=== PATIENT | male | born 1975 | race Caucasian/White ===

== ENCOUNTER → 2018-01-12 | Outpatient (CLI) | payer OTHER | LOC: M WUC 08:46 | DX: R05 Cough (principal); R06.02 Shortness of breath | CPT/HCPCS: 71046 ==

== ENCOUNTER 2019-02-08 06:40 | Day surgery (SDC) | payer OTHER ==
[~2019-02-08] VITALS: Ht 177.8 cm; Wt 103.9 kg
[~2019-02-08 06:40] MED LIST: LEVO88TA3 PO; LOSA100T50 PO; OMEP-218 PO
[2019-02-08] MEDS ORDERED: NS 1,000 ML IV ONE (07:00)
[2019-02-08] MEDS ORDERED: LIDOCAINE 2% INJ 100 MG/5 ML SDV (FOR ANES.) As Ordered ONE (07:03)
[2019-02-08] MEDS ORDERED: PROPOFOL 200 MG/20 ML VIAL As Ordered ONE ×2 (07:03→07:46)
--- NOTE | 2019-02-08 07:49 | ROOR ---
Patient Name: Dewey Dunlap Procedure Date: 02/08/2019 7:33 AM Date of : 1975 Age: 43 Room: [facility] Gender: Male Note Status: Finalized Procedure: Colonoscopy Indications: High risk colon cancer surveillance: Personal history of colonic polyps, Last colonoscopy: September 2013 Providers: Zeyad SYED MD Referring MD: JAMES ORTIZ NP Requesting Provider: Medicines: Monitored Anesthesia Care Complications: No immediate complications. Procedure: Pre-Anesthesia Assessment: - The heart rate, respiratory rate, oxygen saturations, blood pressure, adequacy of pulmonary ventilation, and response to care were monitored throughout the procedure. The Colonoscope was introduced through the anus and advanced to the terminal ileum, with identification of the appendiceal orifice and IC valve. The colonoscopy was performed without difficulty. The patient tolerated the procedure well. The quality of the bowel preparation was good. Findings: The perianal and digital rectal examinations were normal. Small Internal Hemorrhoids. The entire examined colon appeared normal on direct and retroflexion views. Impression: - Small Internal Hemorrhoids. - The entire examined colon is normal on direct and retroflexion views. - No specimens collected. Recommendation: - Repeat colonoscopy in 10 years for screening purposes. Zeyad Syed MD Zeyad SYED MD 02/08/2019 7:49:30 AM Electronically signed by Zeyad SYED MD Number of Addenda: 0 Note Initiated On: 02/08/2019 7:33 AM Estimated Blood Loss: Estimated blood loss: none.
[2019-02-08 08:10] VITALS: BP 128/80
== END 2019-02-08 08:15 | disposition home or self-care (01) ==
LOC: M OPP 06:40
PROVIDERS: ATTEND Internal Medicine Gastroenterology
DX: Z86.010 Personal history of colon polyps (principal); K64.8 Other hemorrhoids; I10 Essential (primary) hypertension; E03.9 Hypothyroidism, unspecified; R12 Heartburn; K21.9 Gastro-esophageal reflux disease without esophagitis; Z88.0 Allergy status to penicillin; Z88.6 Allergy status to analgesic agent; Z79.899 Other long term (current) drug therapy; Z83.3 Family history of diabetes mellitus

== ENCOUNTER → 2020-12-12 | Outpatient (CLI) | payer OTHER ==
--- NOTE | 2020-12-12 16:36 | REP ---
INDICATION: RUQ EVELATED LIVER ENZYMES COMPARISON: None. TECHNIQUE: Real time paul scale ultrasound examination using curved array transducer. FINDINGS: Liver demonstrates increased parenchymal echotexture with poor through transmission suggesting fatty infiltration. No focal hepatic lesions are identified. Pancreas is incompletely evaluated due to interposed bowel gas. The gallbladder is normal and without gallstones, wall thickening, or pericholecystic fluid. No biliary ductal dilatation is appreciated and the common bile duct measures 4.3 mm diameter. Right kidney is normal in reniform shape without hydronephrosis and measures 11.4 x 4.6 x 5.3 cm. No ascites in the visualized right upper quadrant. IMPRESSION: Hepatosteatosis. <Electronically signed by Roger iGlbert > 12/12/20 [id number]
== END ==
LOC: M WHC 08:26
PROVIDERS: ATTEND Registered Nurse
DX: K76.0 Fatty (change of) liver, not elsewhere classified (principal); R94.5 Abnormal results of liver function studies

== ENCOUNTER → 2021-07-06 | Outpatient (REF) | payer OTHER ==
[~2021-07-06] MED LIST changes: +LOSA100T45 PO; -LOSA100T50 PO; +OMEP-173 PO; -OMEP-218 PO
[2021-07-06 13:23] LABS: RHEUMATOID FACTOR QUANT < 10.0 IU/ML (<15.0)
[2021-07-07 17:07] LABS: ANTINUCLEAR ANTIBODIES DIRECT Negative (Negative)
== END ==
LOC: M LAB REF 12:16
PROVIDERS: ATTEND Registered Nurse
DX: M13.0 Polyarthritis, unspecified (principal)

== ENCOUNTER → 2021-12-06 | Outpatient (CLI) | payer OTHER | LOC: M WUC 09:11 | PROVIDERS: ATTEND Registered Nurse | DX: M25.541 Pain in joints of right hand (principal) ==

== ENCOUNTER → 2023-09-17 | Outpatient (REF) | payer OTHER ==
[~2023-09-17] MED LIST changes: -LOSA100T45 PO; +LOSA100T46 PO
== END ==
LOC: M LAB REF 13:01
PROVIDERS: ATTEND Nurse Practitioner Family
DX: R53.83 Other fatigue (principal)

== ENCOUNTER → 2024-09-28 | Outpatient (CLI) | payer OTHER ==
[~2024-09-28] MED LIST changes: +ISOVUE-370 76% 100 ML VIAL As Ordered ONE
== END ==
LOC: M RAD 08:19
PROVIDERS: ATTEND Surgery
DX: R10.84 Generalized abdominal pain (principal); K76.0 Fatty (change of) liver, not elsewhere classified; K57.30 Diverticulosis of large intestine without perforation or abscess without bleeding
CPT/HCPCS: 74177; Q9967